=== PATIENT | male | born 1985 | race Caucasian/White ===

== ENCOUNTER 2018-04-08 06:47 | Day surgery (SDC) | payer OTHER ==
[2018-04-08] MEDS ORDERED: SOD CHLORIDE 0.9% 1,000 ML IV (07:00)
[2018-04-08] MEDS ORDERED: CEFAZOLIN 2 GM/50 ML (PMX) 50 ML IVPB (07:00)
[2018-04-08 07:27] LABS: ADD MAN DIFF? NO; BASOPHILS % 0.4 % (0.0-2.0); EOSINOPHILS # 0.1 10^3/ul (0.0-0.5); EOSINOPHILS % 1.3 % (0.0-7.0); HEMATOCRIT 43.6 % (42.0-52.0); HEMOGLOBIN 15.7 g/dl (14.0-18.0); LYMPHOCYTES % 43.8 % (15.0-51.0); MEAN CORPUSCULAR HEMOGLOBIN 30.1 pg (29.0-33.0); MEAN CORPUSCULAR VOLUME 83.7 fl (82.0-101.0); MONOCYTE # 0.5 10^3/ul (0.3-0.9); MONOCYTES % 7.3 % (0.0-11.0); NEUTROPHIL # 3.2 10^3/ul (1.6-7.5); NEUTROPHILS % 46.9 % (39.0-77.0); PLATELET COUNT 268 10^3/UL (140-415); RED BLOOD COUNT 5.21 10^6/ul (4.70-6.10); RED CELL DISTRIBUTION WIDTH 12.7 % (11.5-14.5)
[2018-04-08 07:27] LABS: WHITE BLOOD COUNT 6.8 10^3/ul (4.8-10.8)
[2018-04-08 07:47] LABS: INR 0.85; PROTIME 11.7 Sec (11.9-14.9); PT RATIO 0.9
[2018-04-08 07:48] LABS: PARTIAL THROMBOPLASTIN TIME 31.5 Sec (23.0-35.0)
[2018-04-08 07:49] LABS: ALANINE AMINOTRANSFERASE 105 IU/L (13-69); ALBUMIN 4.7 g/dl (3.3-4.9); ALBUMIN/GLOBULIN RATIO 1.51; ALKALINE PHOSPHATASE 69 IU/L (42-121); ANION GAP 12 (5-13); ASPARTATE AMINO TRANSFERASE 46 IU/L (15-46); BILIRUBIN,INDIRECT 0.9 mg/dl (0-1.1); BILIRUBIN,TOTAL 0.9 mg/dl (0.2-1.3); BLOOD UREA NITROGEN 13 mg/dl (7-20); CALCIUM 9.5 mg/dl (8.4-10.2); CARBON DIOXIDE 25 mmol/L (21-31); CHLORIDE 103 mmol/L (97-110); CREATININE 0.71 mg/dl (0.61-1.24); Estimated GFR > 60 mL/min (>60); GLUCOSE 101 mg/dl (70-220); POTASSIUM 4.1 mmol/L (3.5-5.1); SODIUM 140 mmol/L (135-144); TOTAL PROTEIN 7.8 g/dl (6.1-8.1)
[2018-04-08] MEDS ORDERED: HYDROmorphONE 1 MG/5 ML IV SYRINGE IV ×2 (08:00)
[2018-04-08] MEDS ORDERED: ONDANSETRON 4 MG INJ IV (08:00)
[2018-04-08] MEDS ORDERED: ALBUTEROL 0.083% (NEB) 2.5 MG/3 ML AMP HHN (08:00)
[2018-04-08] MEDS ORDERED: METOCLOPRAMIDE 10 MG INJ IV (08:00)
[2018-04-08] MEDS ORDERED: FENTAnyl 50 MCG/ML VIAL IV ×2 (08:00)
[2018-04-08] MEDS ORDERED: DIPHENHYDRAMINE 50 MG INJ IV (08:00)
[2018-04-08] MEDS ORDERED: FENTAnyl 50 MCG/ML VIAL (08:08)
[2018-04-08] MEDS ORDERED: MIDAZOLAM 1 MG/ML 2 ML INJ (08:21)
[2018-04-08] MEDS ORDERED: LIDOCAINE 100 MG SYRINGE (08:33)
[2018-04-08] MEDS ORDERED: SUGAMMADEX SODIUM 200 MG/2 ML VIAL IV (08:33)
[2018-04-08] MEDS ORDERED: PROPOFOL 20 ML (08:33)
[2018-04-08] MEDS ORDERED: CEFAZOLIN 1 GM INJ (08:33)
[2018-04-08] MEDS ORDERED: ROCURONIUM 50 MG INJ (08:33)
[2018-04-08] MEDS ORDERED: SUCCINYLCHOLINE CHLORIDE 100 MG/5 ML SYG IV (08:33)
[2018-04-08] MEDS ORDERED: ROPIVACAINE 0.5 % 30 ML VIAL (08:33)
[2018-04-08] MEDS ORDERED: KETOROLAC 30 MG INJ (08:45)
[2018-04-08] MEDS: HYDROmorphONE 1 MG/5 ML IV SYRINGE IV ×2 (09:18→10:02)
[2018-04-08] MEDS: FENTAnyl 50 MCG/ML VIAL IV ×2 (09:20→10:03)
[2018-04-08] MEDS: MEPERIDINE 25 MG INJ IV (09:34)
== END 2018-04-08 10:40 | disposition home or self-care (01) ==
LOC: SDS 06:47
DX: K42.9 Umbilical hernia without obstruction or gangrene (principal)
CPT/HCPCS: 49585; 80053; 85025; 85610; 85730